=== PATIENT | female | born 1955 | race Caucasian/White ===

== ENCOUNTER → 2017-12-16 | Outpatient (CLI) | payer BC ==
[2017-12-16 10:16] LABS: HCT 42.6 % (34.0-46.0); MCH 29.9 pg (25.0-35.0); MCHC 32.9 g/dL (31.0-37.0); MCV 90.9 fL (80.0-100.0); Mean Platelet Volume 7.8; Platelet Count 255 k/uL (150-450); RBC 4.68 m/uL (3.80-5.40); RDW 12.2 % (11.5-15.5); WBC 6.8 k/uL (3.8-10.6)
[2017-12-16 10:43] LABS: ALT 47 U/L (9-52); AST 31 U/L (14-36); Albumin 4.1 g/dL (3.5-5.0); Alkaline Phosphatase 60 U/L (38-126); Anion Gap 7 mmol/L; Blood Urea Nitrogen 17 mg/dL (7-17); Calcium 9.6 mg/dL (8.4-10.2); Carbon Dioxide 27 mmol/L (22-30); Chloride 107 mmol/L (98-107); Cholesterol 212 mg/dL (<200); Glucose 91 mg/dL (74-99); HDL Cholesterol 52 mg/dL (40-60); LDL Cholesterol,Calculated 135 mg/dL (0-99); Potassium 4.7 mmol/L (3.5-5.1); Sodium 141 mmol/L (137-145); Total Bilirubin 0.6 mg/dL (0.2-1.3); Total Protein 7.5 g/dL (6.3-8.2); Triglycerides 127 mg/dL (<150)
[2017-12-16 19:34] LABS: Hemoglobin A1C 5.8 % (4.0-6.0)
== END ==
LOC: LABWHC1 08:48
PROVIDERS: ATTEND Family Medicine
DX: Z51.81 Encounter for therapeutic drug level monitoring (principal); Z79.899 Other long term (current) drug therapy
CPT/HCPCS: 36415; 80053; 80061; 83036; 84443; 85027

== ENCOUNTER → 2018-10-10 | Outpatient (CLI) | payer BC ==
[2018-10-10 11:18] LABS: Basophils # (A) 0.1 k/uL (0-0.2); Basophils % (A) 1 %; Eosinophils # (A) 0.3 k/uL (0-0.7); Eosinophils % (A) 4 %; HCT 41.5 % (34.0-46.0); HGB 14.1 gm/dL (11.4-16.0); Lymphocytes # (A) 3.9 k/uL (1.0-4.8); Lymphocytes % (A) 59 %; MCH 30.7 pg (25.0-35.0); MCHC 33.9 g/dL (31.0-37.0); MCV 90.5 fL (80.0-100.0); Mean Platelet Volume 7.1; Monocytes # (A) 0.3 k/uL (0-1.0); Monocytes % (A) 5 %; Neutrophils % (A) 29 %; Platelet Count 269 k/uL (150-450); RBC 4.59 m/uL (3.80-5.40); RDW 12.3 % (11.5-15.5); WBC 6.7 k/uL (3.8-10.6)
[2018-10-10 17:42] LABS: African American GFR (CKD) 91.6 (60.0-200.0); Albumin 4.2 g/dL (3.80-4.90); Albumin/Globulin Ratio 1.62 (1.60-3.17); Anion Gap 8.1 mmol/L (4.00-12.00); Calcium 9.5 mg/dL (8.7-10.3); Carbon Dioxide 24.9 mmol/L (21.6-31.8); Globulin 2.6 g/dL (1.6-3.3); LDL Cholesterol,Calculated 132.8 mg/dL (0.0-131.0); Potassium 4.6 mmol/L (3.5-5.5); Total Bilirubin 0.6 mg/dL (0.3-1.2); Total Protein 6.8 g/dL (6.2-8.2); VLDL Calculation 22.2 mg/dL (5.00-40.00)
== END | disposition home or self-care (01) ==
LOC: LABWHC1 10:45
PROVIDERS: ATTEND Family Medicine
DX: Z00.00 Encounter for general adult medical examination without abnormal findings (principal); I10 Essential (primary) hypertension
CPT/HCPCS: 36415; 80053; 80061; 83036; 84439; 84443; 85025

== ENCOUNTER → 2018-11-09 | Outpatient (CLI) | payer BC ==
--- NOTE | 2018-11-12 10:30 | MM ---
Reason for exam: screening (asymptomatic). Last mammogram was performed 5 years and 3 months ago. History: Patient is postmenopausal and is nulliparous. Family history of premenopausal breast cancer in aunt and premenopausal breast cancer in mother. Taking other hormone. Physical Findings: A clinical breast exam by your physician is recommended on an annual basis and results should be correlated with mammographic findings. MG Screening Mammo w CAD Bilateral CC and MLO view(s) were taken. Prior study comparison: August 20, 2013, bilateral MG screening mammo w CAD. July 31, 2012, bilateral digital screening mammo w/CAD. There are scattered fibroglandular densities. There is no discrete abnormality. No significant changes when compared with prior studies. ASSESSMENT: Negative, BI-RAD 1 RECOMMENDATION: Routine screening mammogram of both breasts in 1 year.
== END ==
LOC: RADMAMWWP 14:48
PROVIDERS: ATTEND Family Medicine
DX: Z12.31 Encounter for screening mammogram for malignant neoplasm of breast (principal); Z80.3 Family history of malignant neoplasm of breast
CPT/HCPCS: 77067

== ENCOUNTER → 2018-11-12 | Outpatient (CLI) | payer BC ==
--- NOTE | 2018-11-13 08:57 | ECHOF ---
Referral Reason:I49.8 Bradycardia MEASUREMENTS -------- HEIGHT: 160.0 cm WEIGHT: 73.9 kg BP: RVIDd: 2.5 cm (< 3.3) IVSd: 0.9 cm (0.6 - 1.1) LVIDd: 4.3 cm (3.9 - 5.3) LVPWd: 1.1 cm (0.6 - 1.1) IVSs: 1.5 cm LVIDs: 2.3 cm LVPWs: 1.4 cm LAESV Index (A-L): 15.54 ml/m Ao Diam: 2.6 cm (2.0 - 3.7) AV Cusp: 1.6 cm (1.5 - 2.6) LA Diam: 1.8 cm (2.7 - 3.8) MV EXCURSION: 12.148 mm (> 18.000) MV EF SLOPE: 54 mm/s (70 - 150) EPSS: 0.5 cm MV E Erick: 0.77 m/s MV DecT: 318 ms MV A Erick: 0.83 m/s MV E/A Ratio: 0.92 RAP: 15.00 mmHg RVSP: 37.04 mmHg FINDINGS -------- Sinus rhythm. This was a technically adequate study. The left ventricular size is normal. Left ventricular wall thickness is normal. Overall left vent ricular systolic function is normal with, an EF between 55 - 60 %. The diastolic filling pattern is normal for the age of the patient 12.69. The right ventricle is normal in size. The left atrial size is normal. Normal LA size by volume 22+/-6 ml/m2. The right atrial size is normal. Interatrial and interventricular septum intact. The aortic valve is trileaflet and appears structurally normal. The mitral valve is normal. There is trace mitral regurgitation. The tricuspid valve appears structurally normal. Mild tricuspid regurgitation present. There is b orderline pulmonary hypertension. The right ventricular systolic pressure, as measured by Doppler, is 37.04mmHg. There is no pulmonic regurgitation present. The aortic root size is normal. The inferior vena cava is mildly dilated. There is no pericardial effusion. CONCLUSIONS -------- 1. Sinus rhythm. 2. This was a technically adequate study. 3. The left ventricular size is normal. 4. Left ventricular wall thickness is normal. 5. Overall left ventricular systolic function is normal with, an EF between 55 - 60 %. 6. The right ventricle is normal in size. 7. The left atrial size is normal. 8. Normal LA size by volume 22+/-6 ml/m2. 9. The right atrial size is normal. 10. Interatrial and interventricular septum intact. 11. The aortic valve is trileaflet and appears structurally normal. 12. The mitral valve is normal. 13. There is trace mitral regurgitation. 14. The tricuspid valve appears structurally normal. 15. Mild tricuspid regurgitation present. 16. There is borderline pulmonary hypertension. 17. The right ventricular systolic pressure, as measured by Doppler, is 37.04mmHg. 18. There is no pulmonic regurgitation present. 19. The aortic root size is normal. 20. The inferior vena cava is mildly dilated. 21. There is no pericardial effusion. DIRECTOR OF VENDOR MANAGEMENT: Sera Monson RDCS
== END | disposition home or self-care (01) ==
LOC: RADECHMAIN 16:02
PROVIDERS: ATTEND Family Medicine
DX: I07.1 Rheumatic tricuspid insufficiency (principal)
CPT/HCPCS: 93306

== ENCOUNTER → 2019-01-12 | Outpatient (CLI) | payer BC | END | disposition home or self-care (01) | LOC: LABWHC1 09:43 | PROVIDERS: ATTEND Family Medicine | DX: I10 Essential (primary) hypertension (principal) | CPT/HCPCS: 36415; 84443 ==

== ENCOUNTER → 2019-09-04 | Outpatient (CLI) | payer BC | END | disposition home or self-care (01) | LOC: LABWHC1 08:06 | PROVIDERS: ATTEND Family Medicine | DX: E03.9 Hypothyroidism, unspecified (principal) | CPT/HCPCS: 36415; 84443 ==

== ENCOUNTER → 2019-10-24 | Outpatient (CLI) | payer BC ==
[~2019-10-24] MED LIST: REGADENOSON 0.4 MG/5 ML SYRINGE IV ONE
--- NOTE | 2019-10-24 13:29 | NM ---
EXAMINATION TYPE: NM stress lexiscan cardiolite DATE OF EXAM: 10/24/2019 COMPARISON: NONE HISTORY: Abnormal EKG TECHNIQUE: After the intravenous administration of 10.4 and 24.7 mCi Tc 99m Sestamibi-0.4 mg of Miguelina scan FINDINGS: Review of stress and rest SPECT images demonstrates no distinct perfusion abnormality. Gated analysi s shows normal wall motion with an estimated left ventricular ejection fraction of 68 %. IMPRESSION: No scintigraphic evidence for reversible ischemia.
--- NOTE | 2019-10-24 14:13 | EST ---
EXERCISE STRESS DATE OF SERVICE: 10/24/2019 AGE: 64 SEX: Fe HT: 63" WT: 151 lbs PROTOCOL: Lexiscan Cardiolite STAGE: DURATION OF EXERCISE: HEART RATE REST: 47 BLOOD PRESSURE REST: 103/66 MAXIMUM HEART RATE ACHIEVED: 75 MAXIMUM BLOOD PRESSURE: 103/66 85% MPHR: 100% MPHR: METS: REFERRING: Dr. Mendoza. INDICATION: Chest pain. STRESS DATA: Heart rate 47, pressure is 103/66 mmHg. Baseline EKG showed sinus mechanism. 0.4 mg of Lexiscan given over 15 seconds per protocol. Max heart rate was 75 beats per minute. Maximum pressure was 103/66 mmHg. Clinically, the patient did not have any symptoms and the EKG did not show any significant ST or T-wave abnormalities. CONCLUSION: 1. Nondiagnostic electrocardiogram stress testing in response to Lexiscan. 2. Please follow up on the Cardiolite portion on separate report. MMODL / IJN: [id number] /
== END | disposition home or self-care (01) ==
LOC: RADNMMAIN 08:12
PROVIDERS: ATTEND Family Medicine
DX: R94.31 Abnormal electrocardiogram [ECG] [EKG] (principal)
CPT/HCPCS: 93017; 78452; A9500; J2785

== ENCOUNTER → 2020-01-23 | Outpatient (CLI) | payer BC ==
[2020-01-23 16:36] LABS: HCT 38.6 % (34.0-46.0); MCH 30.5 pg (25.0-35.0); MCHC 33.7 g/dL (31.0-37.0); MCV 90.5 fL (80.0-100.0); Mean Platelet Volume 7.5; Platelet Count 245 k/uL (150-450); RBC 4.26 m/uL (3.80-5.40); RDW 12.1 % (11.5-15.5); WBC 9.8 k/uL (3.8-10.6)
[2020-01-24 01:19] LABS: African American GFR (CKD) 90.9 (60.0-200.0); Albumin/Globulin Ratio 1.6 (1.60-3.17); Anion Gap 7.3 mmol/L (4.00-12.00); BUN/Creat Ratio 32.5 Ratio (12.00-20.00); Calcium 9.6 mg/dL (8.7-10.3); Carbon Dioxide 27.7 mmol/L (21.6-31.8); Globulin 2.5 g/dL (1.6-3.3); Non-African American GFR(CKD) 78.5 (60.0-200.0); Potassium 4.1 mmol/L (3.5-5.5); Total Bilirubin 0.4 mg/dL (0.2-1.2); Total Protein 6.5 g/dL (6.2-8.2)
[2020-01-24 01:25] LABS: Hemoglobin A1C 5.9 % (4.0-6.0)
== END | disposition home or self-care (01) ==
LOC: LABWHC1 16:07
PROVIDERS: ATTEND Family Medicine
DX: B89 Unspecified parasitic disease (principal)
CPT/HCPCS: 36415; 80053; 83036; 85027; 86769

== ENCOUNTER → 2020-01-23 | Outpatient (CLI) | payer BC ==
--- NOTE | 2020-01-24 09:51 | MM ---
Reason for exam: screening (asymptomatic). Last mammogram was performed 1 year and 2 months ago. History: Patient is postmenopausal and is nulliparous. Family history of premenopausal breast cancer in aunt and premenopausal breast cancer in mother. Taking other hormone. Physical Findings: A clinical breast exam by your physician is recommended on an annual basis and results should be correlated with mammographic findings. MG 3D Screening Mammo W/Cad Bilateral CC and MLO view(s) were taken. Prior study comparison: November 09, 2018, bilateral MG screening mammo w CAD. August 20, 2013, bilateral MG screening mammo w CAD. The breast tissue is heterogeneously dense. This may lower the sensitivity of mammography. There is no discrete abnormality. No significant changes when compared with prior studies. ASSESSMENT: Negative, BI-RAD 1 RECOMMENDATION: Routine screening mammogram of both breasts in 1 year.
== END | disposition home or self-care (01) ==
LOC: RADMAMWWP 15:49
PROVIDERS: ATTEND Obstetrics & Gynecology Obstetrics
DX: Z12.31 Encounter for screening mammogram for malignant neoplasm of breast (principal); Z80.3 Family history of malignant neoplasm of breast
CPT/HCPCS: 77063; 77067

== ENCOUNTER 2020-11-23 15:24 | Emergency (ER) | payer BC ==
[2020-11-23 16:40] LABS: Basophils # (A) 0.1 k/uL (0-0.2); Basophils % (A) 1 %; Eosinophils # (A) 0.2 k/uL (0-0.7); Eosinophils % (A) 2 %; HCT 42.1 % (34.0-46.0); HGB 14.3 gm/dL (11.4-16.0); Lymphocytes # (A) 4.1 k/uL (1.0-4.8); Lymphocytes % (A) 47 %; MCH 30.9 pg (25.0-35.0); MCV 90.8 fL (80.0-100.0); Mean Platelet Volume 8.1; Monocytes # (A) 0.6 k/uL (0-1.0); Monocytes % (A) 7 %; Neutrophils # (A) 3.8 k/uL (1.3-7.7); Neutrophils % (A) 42 %; Platelet Count 231 k/uL (150-450); RBC 4.64 m/uL (3.80-5.40); RDW 11.6 % (11.5-15.5); WBC 8.9 k/uL (3.8-10.6)
[2020-11-23 16:48] VITALS: PULSE 76
[2020-11-23 16:53] LABS: ALT 33 U/L (4-34); AST 28 U/L (14-36); African American GFR (CKD) >90 (>60 ml/min/1.73 sqM); Albumin 3.9 g/dL (3.5-5.0); Alkaline Phosphatase 72 U/L (38-126); Anion Gap 9 mmol/L; Blood Urea Nitrogen 21 mg/dL (7-17); Calcium 9.6 mg/dL (8.4-10.2); Carbon Dioxide 23 mmol/L (22-30); Chloride 106 mmol/L (98-107); Glucose 115 mg/dL (74-99); Magnesium 2.1 mg/dL (1.6-2.3); Non-African American GFR(CKD) >90 (>60 ml/min/1.73 sqM); Potassium 3.8 mmol/L (3.5-5.1); Sodium 138 mmol/L (137-145); Total Bilirubin 0.5 mg/dL (0.2-1.3); Total Protein 7.2 g/dL (6.3-8.2)
[2020-11-23 16:56] LABS: INR 0.9 (<1.2); Partial Thromboplastin Time 22.6 sec (22.0-30.0); Prothrombin Time 9.8 sec (9.0-12.0)
--- NOTE | 2020-11-23 17:16 | XR ---
EXAMINATION TYPE: XR chest 2V DATE OF EXAM: 11/23/2020 COMPARISON: 08/20/2013 HISTORY: Chest pain TECHNIQUE: Frontal and lateral views of the chest are obtained. FINDINGS: There is no focal air space opacity, pleural effusion, or pneumothorax seen. The cardiac silhouette size is within normal limits. The osseous structures are intact. IMPRESSION: No acute cardiopulmonary process.
--- NOTE | 2020-11-23 18:00 | ED ---
Chest Pain HPI - General Chief Complaint: Chest Pain Stated Complaint: Chest Pain Time Seen by Provider: 11/23/20 16:23 Source: patient, family Mode of arrival: wheelchair - History of Present Illness Initial Comments: This is a 65-year-old female with no real significant past medical history who presents emergent department for chest pain. The patient states that she's been having intermittent episodes of chest pain for the last for 5 days. She states it's worse with exertion and better with rest. She states that she notices it when she walks or goes upstairs. She describes it as a pulling sensation that does not radiate however today she noted that she was having some discomfort in her arms. Currently she has no symptoms. She does not have any cardiac history. She denies any associative lightheaded this, dizziness, diaphoresis, shortness of breath, cough. No other complaints. - Related Data Home Medications Medication Instructions Recorded Confirmed Levothyroxine Sodium 150 mcg PO DAILY 11/23/20 11/23/20 Previous Rx's Medication Instructions Recorded Aspirin EC [Ecotrin] 325 mg PO DAILY #30 tablet. 08/22/13 Allergies Allergy/AdvReac Type Severity Reaction Status Date / Time Sulfa (Sulfonamide Allergy Intermediate Rash/Hives Verified 11/23/20 17:10 Antibiotics) Review of Systems ROS Statement: Those systems with pertinent positive or pertinent negative responses have been documented in the HPI. ROS Other: All systems not noted in ROS Statement are negative. EKG Findings - EKG Comments: EKG Findings:: EKG showing normal sinus rhythm with a rate of 65. No abnormal ST segment changes. There appears to be T-wave inversion in V2 and T-wave flattening in V3 however no other ischemic changes. QTC is 405. Other intervals normal. No ectopy. Past Medical History Past Medical History: Thyroid Disorder Additional Past Medical History / Comment(s): HYPOTHYROID History of Any Multi-Drug Resistant Organisms: None Reported Past Surgical History: Tonsillectomy Past Psychological History: No Psychological Hx Reported Smoking Status: Never smoker Past Alcohol Use History: Rare Past Drug Use History: None Reported - Past Family History Mother Family Medical History: Cancer Additional Family Medical History / Comment(s): BREAST CANCER Sister(s) Family Medical History: Blood Disorder Additional Family Medical History / Comment(s): AUTOIMMUNE DISORDER THAT ATTACKS WBC'S Course Vital Signs 11/23/20 11/23/20 15:37 16:45 Temperature 97.9 F Pulse Rate 66 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 She was evaluated at bedside. She has stable vital signs per she had no chest pain while in the emergency department. She had an EKG and troponin performed that were unremarkable. Chest x-ray was unremarkable. The respiratory blood work was also unremarkable. The patient has no risk factors for CAD. However story is somewhat concerning. EKG just showed some T-wave inversion in V2. I rechecked the Dr. Mendoza to see if he could get her in the office tomorrow for evaluation and possible setting up for further cardiac testing and he stated that he could. The patient was updated with this and stated that she felt comfortable going home tonight. The is going to be with her. He felt that he would be able to watch her at home. I told her that she is return promptly if she has any worsening of her symptoms or any changing symptoms at all. ARE answered. Disposition Clinical Impression: Chest tightness Disposition: HOME SELF-CARE Condition: Stable Instructions (If sedation given, give patient instructions): Chest Pain (ED) Is patient prescribed a controlled substance at d/c from ED?: No Referrals: Jaime Mendoza MD [Primary Care Provider] - 1-2 days
[2020-11-23] MEDS ORDERED: HYDROcodone/APAP 5-325MG 1 EACH TAB PO STA (19:07)
[2020-11-23 19:53] VITALS: BP 126/74; RESP 16; TEMP 98.3
== END 2020-11-23 19:53 | disposition home or self-care (01) ==
LOC: EC 15:24
DX: R07.89 Other chest pain (principal); E07.9 Disorder of thyroid, unspecified; Z79.82 Long term (current) use of aspirin; Z88.2 Allergy status to sulfonamides; Z90.89 Acquired absence of other organs
CPT/HCPCS: 36415; 71046; 80053; 83735; 83880; 84484; 85025; 85610; 85730; 99285

== ENCOUNTER → 2020-12-22 | Outpatient (CLI) | payer BC ==
--- NOTE | 2020-12-22 14:39 | NM ---
EXAMINATION TYPE: NM stress cardiolite complete DATE OF EXAM: 12/22/2020 COMPARISON: NONE HISTORY: 65-year-old female chest pain TECHNIQUE: After the intravenous administration of 9.3 mCi Tc 99m Sestamibi - Cardiolite resting SPE CT images acquired 45 minutes post injection. The patient received 0.4mg Lexiscan, 24.5 mCi Tc 99m Se stamibi - Stress images obtained 45 minutes post injection FINDINGS: Review of stress and rest SPECT images suggests a subtle small area of reversibility along the mid an terior wall. No distinct perfusion abnormality. Gated analysis shows normal wall motion with an travis mated left ventricular ejection fraction of 70 %. TID is calculated at 1.03, within normal limits. IMPRESSION: Equivocal for a small area of reversibility along the mid anterior wall. True inducible ischemia vers us attenuation artifact as the region is not corroborated on the polar maps. Further evaluation as cl inically indicated.
--- NOTE | 2020-12-22 18:50 | P.STRESS ---
- Stress Test Note Stress Test Results/Findings: Exam Performed: NM stress lexiscan cardiolite Exam Date: 12/22/20 Reason for Exam: CP Height: 5 ft 3 in Weight: 72 kg Protocol: LEXISCAN Stage: NA Duration of Exercise: NA Resting Heart Rate: 73 Resting Blood Pressure: 149/80 Maximum Achieved Heart Rate: 89 Maximum Achieved Blood Pressure: 149/80 85% PMHR: 133 100% PMHR: 156 METS: NA Technologist Comment: Stress Test Results/Findings: Baseline heart rate 73 beats a minute, Baseline blood pressure 149/80 mmHg Baseline crit EKG showed sinus rhythm with a [address] depression inferolaterally Patient received Lexiscan infusion per protocol No new ECG changes are noted no arrhythmias noted Nuclear portion will be reported separately
== END | disposition home or self-care (01) ==
LOC: RADNMMAIN 07:35
PROVIDERS: ATTEND Family Medicine
DX: R07.9 Chest pain, unspecified (principal)
CPT/HCPCS: 93017; 78452; A9500

== ENCOUNTER → 2020-12-29 | Outpatient (CLI) | payer BC ==
[2020-12-29 09:09] LABS: HCT 37.2 % (34.0-46.0); HGB 13.2 gm/dL (11.4-16.0); MCH 31.4 pg (25.0-35.0); MCHC 35.5 g/dL (31.0-37.0); MCV 88.7 fL (80.0-100.0); Mean Platelet Volume 7.7; Platelet Count 244 k/uL (150-450); RDW 12.3 % (11.5-15.5); WBC 6.3 k/uL (3.8-10.6)
[2020-12-29 09:26] LABS: African American GFR (CKD) >90 (>60 ml/min/1.73 sqM); Anion Gap 6 mmol/L; Blood Urea Nitrogen 22 mg/dL (7-17); Carbon Dioxide 26 mmol/L (22-30); Chloride 105 mmol/L (98-107); Non-African American GFR(CKD) >90 (>60 ml/min/1.73 sqM); Potassium 4.5 mmol/L (3.5-5.1); Sodium 137 mmol/L (137-145)
== END | disposition home or self-care (01) ==
LOC: LABPAT 08:19
PROVIDERS: ATTEND Internal Medicine Interventional Cardiology
DX: Z01.812 Encounter for preprocedural laboratory examination (principal); R07.9 Chest pain, unspecified
CPT/HCPCS: 80051; 82565; 84520; 85027

== ENCOUNTER 2021-01-05 09:20 | Day surgery (SDC) | payer BC ==
[2021-01-05] MEDS: SODIUM CHLORIDE 0.9% 1,000 ML in EMPTY BAG 1 BAG IV SCH (07:10)
[~2021-01-05 09:20] MED LIST changes: +ALPRAZolam 0.25 MG TAB PO PRN; +ALPRAZolam 0.5 MG TAB PO PRN; +ASPIRIN 325 MG TAB PO STA; +ATORVASTATIN 80 MG TAB PO STA; +HEPARIN SODIUM,PORCINE 10,000 UNIT in SODIUM CHLORIDE 0.9% 1,000 ML IRRIGATION PRN; +HEPARIN SODIUM,PORCINE 2,500 UNIT in SODIUM CHLORIDE 0.9% 250 ML IRRIGATION PRN; +NITROGLYCERIN SL TABS 0.4 MG TAB SUBLINGUAL PRN; -REGADENOSON 0.4 MG/5 ML SYRINGE IV ONE
[2021-01-05] MEDS ORDERED: SODIUM CHLORIDE 0.9% 1,000 ML IV ONE (09:35)
[2021-01-05] MEDS ORDERED: MIDAZOLAM 2 MG/2 ML VIAL IV ONE ×2 (11:02→11:17)
[2021-01-05] MEDS ORDERED: LIDOCAINE 1% INJ 10MG/ML (20 ML MDV) SQ ONE (11:03)
[2021-01-05] MEDS: VERAPAMIL SYRINGE (5 MG/10 ML) INTRAARTER ONE ×2 (11:05→11:40)
[2021-01-05] MEDS: HEPARIN SODIUM 1,000 UN/ML (10ML VL) IV ONE ×2 (11:08→11:16)
[2021-01-05] MEDS ORDERED: PRASUGREL 10 MG TAB PO ONE (11:17)
[2021-01-05] MEDS ORDERED: fentaNYL (PF) 50 MCG/ML 2 ML AMP IV ONE (11:20)
[2021-01-05] MEDS: NITROGLYCERIN 1000MCG/10ML SYRINGE INTRACORON ONE ×2 (11:27→11:31)
[2021-01-05] MEDS ORDERED: IOPAMIDOL-370 125ML BTL INJ ONE (11:43)
[2021-01-05] MEDS ORDERED: MAG HYDROX/AL HYDROX/SIMETH 30 ML CUP PO PRN (11:49)
[2021-01-05] MEDS ORDERED: NITROGLYCERIN SL TABS 0.4 MG TAB SUBLINGUAL PRN (11:49)
[2021-01-05] MEDS ORDERED: ATROPINE SULFATE 0.1 MG/ML 10ML SYRINGE IV PRN (11:49)
[2021-01-05] MEDS ORDERED: RX INFO: IV CONTRAST WAS GIVEN 1 EACH MISC MISCELLANE PRN (11:49)
[2021-01-05] MEDS ORDERED: ZOLPIDEM 5 MG TAB PO PRN (11:49)
[2021-01-05] MEDS ORDERED: SODIUM CHLORIDE 0.9% 1,000 ML IV SCH (12:00)
[2021-01-05] MEDS ORDERED: METOPROLOL SUCCINATE (ER) 25 MG TAB.ER.24H PO STA (13:01)
[2021-01-05 14:06] VITALS: BMI 29.6
--- NOTE | 2021-01-05 15:06 | CC ---
CARDIAC CATHETERIZATION REPORT DATE OF SERVICE: January 05, 2021. PERFORMING PHYSICIAN: Smith Arellano MD. PROCEDURE PERFORMED: 1. Selective right and left coronary angiogram. 2. Left heart catheterization. 3. Successful stenting of the mid left anterior descending artery using 3.25 x 15 mm Xience drug-eluting stent which was dilated using 3.5 mm NC balloon with an excellent angiographic result and reduction of stenosis from 80% to 0%. INDICATION: This is a 65-year-old female patient with dyslipidemia who was experiencing symptoms of chest discomfort and she underwent myocardial perfusion imaging stress test and that revealed an anterior ischemia. Because of that, a heart catheterization was advised. APPROACH: Right radial artery. COMPLICATION: None. LEVEL OF SEDATION: Moderate with sedation length of 25 minutes. PROCEDURE DESCRIPTION: After obtaining informed consent, the patient was brought to the cardiac cath lab manager. The right radial artery was cannulated using micropuncture technique. The micropuncture wire passed easily then I placed a 6-Haitian sheath at the right radial artery. At that point, the patient was given a total of 2 mg of verapamil IA and total of 5000 units of heparin IV. Selective right and left coronary angiogram performed using JR4 and JL3.5 catheters. Left heart catheterization was performed using 5-Haitian pigtail catheter. After that, I did intervene on the LAD please see a separate paragraph for that. SELECTIVE CORONARY ANGIOGRAM: 1. The right coronary artery is a medium caliber vessel. It is a nondominant vessel and appeared to be angiographically normal. 2. The left main is angiographically normal. It bifurcates into left circumflex and left anterior descending artery. 3. The left circumflex is a large caliber vessel. It is a dominant vessel. It appeared angiographically normal. Distally it bifurcates into PDA and PLV branches. Both appeared to be angiographically normal. 4. The left anterior descending artery: The proximal LAD appeared angiographically normal. The mid LAD after the bifurcation of a medium-sized diagonal branch has a lesion appeared to be in the range of 80% to 90%. The angiographically normal. HEMODYNAMICS: The LVEDP was 18 mmHg without significant gradient across the aortic valve. PCI OF THE LAD: Anticoagulation was achieved using heparin and continued using heparin with continuous ACT monitoring throughout the procedure. After that, I did engage the left main using JL3.5 guiding catheter. I did wire the LAD using a run-through wire. After that, I did PTCA ballooning using 2.5 x 12 mm balloon before I deployed the 2.5 x 15 mm Xience drug-eluting stent where the stent was positioned under fluoroscopy guidance and deployed under 16 atmospheres for 20 seconds. I post-dilated the stent using 3.5 mm NC balloon. The following angiogram showed excellent angiographic results and the procedure was completed without any complication. CONCLUSION: 1. Intermittent episodes of chest discomfort in this 65-year-old female patient with dyslipidemia who underwent myocardial perfusion imaging stress test and that revealed an anterior ischemia. 2. 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 I performed successful stenting of the LAD. 3. Dominant left circumflex coronary system. 4. Mildly dilated LVEDP. 5. POSTPROCEDURE MANAGEMENT: 1. Dual anti-platelet therapy. 2. Aggressive cholesterol control. 3. Risk factor modifications. 4. Follow up with the patient. RODRICK / NUNUN: [id number] /
[2021-01-06] MEDS: SODIUM CHLORIDE 0.9% 1,000 ML in EMPTY BAG 1 BAG IV SCH ×2 (02:38→08:31)
--- NOTE | 2021-01-06 06:19 | CONS ---
CONSULTATION Charlotte Harvey is a 65-year-old white female, status post cardiac catheterization with LAD lesion, 90% down to 0% with PTCA. No chest pain or shortness of breath postop. Cardiovascular S1-S2. Lungs clear. ASSESSMENT: 1. Hypothyroidism. 2. Left anterior descending coronary artery status post PTCA. PLAN: Patient will continue with levothyroxine, aspirin, Lipitor, Toprol-XL, possible Plavix. Follow up in next 24 to 48 hours for discharge. Thank you for the consult Dr. Arellano. RODRICK / BEHZAD: [id number] /
[2021-01-06 06:29] LABS: Basophils # (A) 0.1 k/uL (0-0.2); Basophils % (A) 1 %; Eosinophils # (A) 0.2 k/uL (0-0.7); Eosinophils % (A) 2 %; HGB 13.8 gm/dL (11.4-16.0); Lymphocytes # (A) 4.7 k/uL (1.0-4.8); Lymphocytes % (A) 49 %; MCH 30.9 pg (25.0-35.0); MCHC 34.6 g/dL (31.0-37.0); MCV 89.2 fL (80.0-100.0); Monocytes # (A) 0.6 k/uL (0-1.0); Monocytes % (A) 6 %; Neutrophils # (A) 3.9 k/uL (1.3-7.7); Neutrophils % (A) 41 %; Platelet Count 252 k/uL (150-450); RBC 4.49 m/uL (3.80-5.40); RDW 12.3 % (11.5-15.5); WBC 9.7 k/uL (3.8-10.6)
[2021-01-06] MEDS ORDERED: LEVOTHYROXINE 75 MCG TAB PO SCH (06:30)
[2021-01-06 06:39] LABS: African American GFR (CKD) >90 (>60 ml/min/1.73 sqM); Anion Gap 7 mmol/L; Blood Urea Nitrogen 17 mg/dL (7-17); Calcium 9.5 mg/dL (8.4-10.2); Carbon Dioxide 27 mmol/L (22-30); Chloride 105 mmol/L (98-107); Glucose 103 mg/dL (74-99); Non-African American GFR(CKD) 81 (>60 ml/min/1.73 sqM); Potassium 4.4 mmol/L (3.5-5.1); Sodium 139 mmol/L (137-145)
[2021-01-06 08:17] VITALS: BP 102/60; PULSE 57; RESP 16; TEMP 97.6
[2021-01-06] MEDS ORDERED: ATORVASTATIN 40 MG TAB PO SCH (09:00)
[2021-01-06] MEDS ORDERED: PRASUGREL 10 MG TAB PO SCH (09:00)
[2021-01-06] MEDS ORDERED: METOPROLOL SUCCINATE (ER) 25 MG TAB.ER.24H PO SCH (09:00)
[2021-01-06] MEDS ORDERED: ASPIRIN 325 MG TAB PO SCH (09:00)
--- NOTE | 2021-01-06 09:40 | P.DS ---
Providers Date of admission: January 052020 Attending physician: Smith Arellano Consults: 01/05/21 11:49 Consult Physician Routine Consulting Provider: [facility] Consult Reason/Comments: Post Interventional patient Do you want consulting provider notified?: Already Contacted 01/05/21 11:52 Consult Physician Routine Consulting Provider: Jaime Mendoza Consult Reason/Comments: Medical tx Do you want consulting provider notified?: Yes Primary care physician: [place] Hospital Course: This is a 65-year-old female patient with hypertension and dyslipidemia was experiencing symptoms of chest discomfort and underwent myocardial perfusion stress test and that came in to be normal. She underwent a heart catheterization yesterday that revealed severe disease involving the proximal to mid LAD which she underwent successful stenting of the proximal to mid LAD with a good angiographic results and without any complication She was seen this morning. She is feeling better in terms of shortness of breath and chest pain. The right radial site is soft and nontender and without any bruises. The patient is going to be discharged home on dual antiplatelet therapy and I'll follow-up with her in the office in a week Plan - Discharge Summary Discharge Rx Participant: No New Discharge Prescriptions: New Prasugrel [Effient] 10 mg PO DAILY #90 tablet Continue Aspirin EC [Ecotrin] 325 mg PO DAILY #30 tablet. Levothyroxine Sodium 150 mcg PO DAILY Metoprolol Succinate (ER) [Toprol XL] 12.5 mg PO DAILY Atorvastatin [Lipitor] 40 mg PO DAILY Discharge Medication List Aspirin EC [Ecotrin] 325 mg PO DAILY #30 tablet. 08/22/13 [Rx] Levothyroxine Sodium 150 mcg PO DAILY 11/23/20 [History] Atorvastatin [Lipitor] 40 mg PO DAILY 01/05/21 [History] Metoprolol Succinate (ER) [Toprol XL] 12.5 mg PO DAILY 01/05/21 [History] Prasugrel [Effient] 10 mg PO DAILY #90 tablet 01/06/21 [Rx] Follow up Appointment(s)/Referral(s): Smith Arellano MD [STAFF PHYSICIAN] - 1 Week (APPOINTMENT MADE ON January @ 12:15PM )
== END 2021-01-06 11:50 | disposition home or self-care (01) ==
LOC: CATHCVL 09:20 → 6NMEDSUR 11:45 → CATHCVL 01-06 11:50
PROVIDERS: ATTEND Internal Medicine Interventional Cardiology
DX: I25.110 Atherosclerotic heart disease of native coronary artery with unstable angina pectoris (principal); I10 Essential (primary) hypertension; E78.00 Pure hypercholesterolemia, unspecified; E03.9 Hypothyroidism, unspecified; E78.5 Hyperlipidemia, unspecified; Z88.2 Allergy status to sulfonamides; Z79.82 Long term (current) use of aspirin; Z79.890 Hormone replacement therapy; Z79.899 Other long term (current) drug therapy
CPT/HCPCS: 93458; 80048; 85025; 87635; C9600; C1887; C1894; C1725 ×2; C1769; C1874; J2250; J2001; J3010; J1644; Q9967

== ENCOUNTER → 2021-01-15 | Outpatient (CLI) | payer BC ==
--- NOTE | 2021-01-15 15:34 | BD ---
EXAMINATION TYPE: Axial Bone Density DATE OF EXAM: 01/15/2021 COMPARISON: NONE CLINICAL HISTORY: disorder of bone Height: 62 IN Weight: 169 LBS FRAX RISK QUESTIONS: Family History (Parent hip fracture): YES FATHER RISK FACTORS HISTORY OF: Active: YES Postmenopausal woman: AGE 51 Take estrogen and/or progesterone medications: NOT NOW How long: CONTROL FOR 10 YEARS MEDICATIONS: Thyroid Medications: YES Which medication: Levothyroxine How Lon + YEARS Additional Medications: LEVOTHYROXINE,81 MG ASPIRIN, HEART MED, CHOLESTEROL MED, BLOOD THINNER, EXAM MEASUREMENTS: Bone mineral densitometry was performed using the [employer] System. Bone mineral density as measured about the Lumbar spine is: ----- L1-L4(G/cm2): 1.118 T Score Values are as follows: ----- L2: -0.9 ----- L3: -0.3 ----- L4: 0.0 ----- L1-L4: -0.5 Bone mineral density BASELINE Bone mineral density about the R hip (g/cm2): 0.883 Bone mineral density about the L hip (g/cm2): 0.853 T Score values are as follows: -----R Neck: -1.1 -----L Neck: -1.3 -----R Total: -0.3 -----L Total: -0.7 Bone mineral density BASELINE IMPRESSION: osteopenia. NOTE: T-SCORE=SD OF THE YOUNG ADULT MEAN.
== END | disposition home or self-care (01) ==
LOC: RADBDWWP 07:14
PROVIDERS: ATTEND Family Medicine
DX: M85.89 Other specified disorders of bone density and structure, multiple sites (principal); Z79.01 Long term (current) use of anticoagulants; Z79.82 Long term (current) use of aspirin
CPT/HCPCS: 77080

== ENCOUNTER → 2021-01-25 | Outpatient (CLI) | payer BC ==
--- NOTE | 2021-01-26 14:05 | MM ---
Reason for exam: screening (asymptomatic). Last mammogram was performed 1 year ago. History: Patient is postmenopausal and is nulliparous. Family history of premenopausal breast cancer in maternal aunt at age 45 and premenopausal breast cancer in mother at age 45. Taking other hormone. Physical Findings: A clinical breast exam by your physician is recommended on an annual basis and results should be correlated with mammographic findings. MG 3D Screening Mammo W/Cad Bilateral CC and MLO view(s) were taken. Prior study comparison: January 23, 2020, bilateral MG 3d screening mammo w/cad. November 09, 2018, bilateral MG screening mammo w CAD. There are scattered fibroglandular densities. There is no discrete abnormality. ASSESSMENT: Negative, BI-RAD 1 RECOMMENDATION: Routine screening mammogram of both breasts in 1 year.
== END | disposition home or self-care (01) ==
LOC: RADMAMWWP 07:41
PROVIDERS: ATTEND Obstetrics & Gynecology Obstetrics
DX: Z12.31 Encounter for screening mammogram for malignant neoplasm of breast (principal); Z78.0 Asymptomatic menopausal state; Z80.3 Family history of malignant neoplasm of breast; R92.8 Other abnormal and inconclusive findings on diagnostic imaging of breast
CPT/HCPCS: 77063; 77067

== ENCOUNTER → 2021-06-04 | Outpatient (CLI) | payer BC ==
[2021-06-04 14:45] LABS: HCT 38.5 % (37.2-46.3); HGB 12.8 g/dL (12.0-15.0); MCH 29.9 pg (27.0-32.0); MCHC 33.2 g/dL (32.0-37.0); Mean Platelet Volume 10.9 fL (9.5-12.2); NRBC Per 100 WBC 0 /100 WBCS (0.0-0.0); Platelet Count 230 X 10*3/uL (140-440); RBC 4.28 X 10*6/uL (4.10-5.20); RDW 11.6 % (11.5-14.5); WBC 7.36 X 10*3/uL (4.50-10.00)
[2021-06-04 16:29] LABS: ALT 35 U/L (8-44); AST 22 U/L (13-35); African American GFR (CKD) 106.1 (60.0-200.0); Albumin 4.1 g/dL (3.8-4.9); Albumin/Globulin Ratio 1.58 (1.60-3.17); Alkaline Phosphatase 86 U/L (41-126); BUN/Creat Ratio 25.86 Ratio (12.00-20.00); Blood Urea Nitrogen 18.1 mg/dL (9.0-27.0); Calcium 9.6 mg/dL (8.7-10.3); Carbon Dioxide 23.7 mmol/L (20.0-27.5); Chloride 107 mmol/L (96-109); Chol/HDL Ratio 2.63 Ratio; Globulin 2.6 g/dL (1.6-3.3); Glucose 92 mg/dL (70-110); LDL Cholesterol,Calculated 57.1 mg/dL (0.0-131.0); Non-African American GFR(CKD) 91.6 (60.0-200.0); Potassium 4.3 mmol/L (3.5-5.5); Sodium 140 mmol/L (135-145); Total Protein 6.7 g/dL (6.2-8.2)
== END | disposition home or self-care (01) ==
LOC: LABWHC1 09:14
PROVIDERS: ATTEND Family Medicine
DX: I25.10 Atherosclerotic heart disease of native coronary artery without angina pectoris (principal)
CPT/HCPCS: 36415; 80053; 80061; 83036; 84439; 84443; 85027

== ENCOUNTER → 2021-12-06 | Outpatient (CLI) | payer BC ==
[2021-12-06 10:29] LABS: ALT 44 U/L (8-44); AST 31 U/L (13-35); African American GFR (CKD) 105.4 (60.0-200.0); Albumin 4.1 g/dL (3.8-4.9); Albumin/Globulin Ratio 1.32 (1.60-3.17); Alkaline Phosphatase 103 U/L (41-126); BUN/Creat Ratio 22.57 Ratio (12.00-20.00); Blood Urea Nitrogen 15.8 mg/dL (9.0-27.0); Calcium 9.7 mg/dL (8.7-10.3); Carbon Dioxide 25.3 mmol/L (20.0-27.5); Chloride 102 mmol/L (96-109); Chol/HDL Ratio 2.63 Ratio; Globulin 3.1 g/dL (1.6-3.3); Glucose 106 mg/dL (70-110); LDL Cholesterol,Calculated 58.6 mg/dL (0.0-131.0); Non-African American GFR(CKD) 90.9 (60.0-200.0); Potassium 4.4 mmol/L (3.5-5.5); Sodium 136 mmol/L (135-145); Total Protein 7.2 g/dL (6.2-8.2)
== END | disposition home or self-care (01) ==
LOC: LABWHC1 08:19
PROVIDERS: ATTEND Family Medicine
DX: Z00.00 Encounter for general adult medical examination without abnormal findings (principal); I10 Essential (primary) hypertension
CPT/HCPCS: 36415; 80053; 80061; 83036; 84443

== ENCOUNTER → 2022-10-21 | Outpatient (CLI) | payer BC ==
[2022-10-21 11:08] LABS: Basophils # (A) 0.07 X 10*3/uL (0.00-0.10); Basophils % (A) 1.1 %; Eosinophils # (A) 0.15 X 10*3/uL (0.04-0.35); Eosinophils % (A) 2.4 %; HCT 40.7 % (37.2-46.3); HGB 13.5 d/dL (12.0-15.0); Lymphocytes # (A) 3.07 X 10*3/uL (0.90-5.00); Lymphocytes % (A) 49.7 %; MCH 29.8 pg (27.0-32.0); MCHC 33.2 d/dL (32.0-37.0); MCV 89.8 FL (80.0-97.0); Mean Platelet Volume 11.4 FL (9.5-12.2); Monocytes # (A) 0.61 X 10*3/uL (0.20-1.00); Monocytes % (A) 9.9 %; NRBC Per 100 WBC 0 X 10*3/uL (0.00-0.01); Neutrophils # (A) 2.27 X 10*3/uL (1.80-7.70); Neutrophils % (A) 36.7 %; Platelet Count 230 X 10*3/uL (140-440); RBC 4.53 X 10*6/uL (4.10-5.20); RDW 11.8 % (11.5-14.5); WBC 6.18 X 10*3/uL (4.50-10.00)
[2022-10-21 13:26] LABS: BUN/Creat Ratio 20.88 Ratio (12.00-20.00); Blood Urea Nitrogen 16.7 mg/dL (9.0-27.0); Chloride 107 mmol/L (96-109); Chol/HDL Ratio 2.66 Ratio; Glucose 97 mg/dL (70-110); LDL Cholesterol,Calculated 64.1 mg/dL (0.0-131.0); Potassium 4.3 mmol/L (3.5-5.5); Sodium 142 mmol/L (135-145)
[2022-10-21 13:27] LABS: ALT 34 U/L (8-44); AST 26 U/L (13-35); Albumin 4.2 d/dL (3.8-4.9); Albumin/Globulin Ratio 1.62 Ratio (1.60-3.17); Alkaline Phosphatase 89 U/L (41-126); Calcium 9.8 mg/dL (8.7-10.3); Globulin 2.6 d/dL (1.6-3.3); Total Bilirubin 0.7 mg/dL (0.3-1.2); Total Protein 6.8 d/dL (6.2-8.2)
== END | disposition home or self-care (01) ==
LOC: LABWHC1 07:09
PROVIDERS: ATTEND Family Medicine
DX: Z00.00 Encounter for general adult medical examination without abnormal findings (principal); Z51.81 Encounter for therapeutic drug level monitoring; I10 Essential (primary) hypertension; I25.10 Atherosclerotic heart disease of native coronary artery without angina pectoris; G47.33 Obstructive sleep apnea (adult) (pediatric); Z79.899 Other long term (current) drug therapy
CPT/HCPCS: 36415; 80053; 80061; 82164; 82785; 84443; 85025

== ENCOUNTER → 2023-04-15 | Outpatient (CLI) | payer BC ==
[2023-04-15 13:43] LABS: HCT 40.4 % (37.2-46.3); HGB 13.3 g/dL (12.0-15.0); MCH 29.7 pg (27.0-32.0); MCHC 32.9 g/dL (32.0-37.0); MCV 90.2 FL (80.0-97.0); Mean Platelet Volume 11.5 FL (9.5-12.2); NRBC Per 100 WBC 0 X 10*3/uL (0.00-0.01); Platelet Count 230 X 10*3/uL (140-440); RBC 4.48 X 10*6/uL (4.10-5.20); RDW 11.8 % (11.5-14.5); WBC 5.85 X 10*3/uL (4.50-10.00)
[2023-04-15 13:56] LABS: ALT 34 U/L (8-44); AST 25 U/L (13-35); Alkaline Phosphatase 88 U/L (41-126); BUN/Creat Ratio 19.75 Ratio (12.00-20.00); Blood Urea Nitrogen 15.8 mg/dL (9.0-27.0); Calcium 9.7 mg/dL (8.7-10.3); Carbon Dioxide 24.9 mmol/L (21.6-31.8); Chloride 106 mmol/L (96-109); Chol/HDL Ratio 2.34 Ratio; Globulin 2.5 g/dL (1.6-3.3); Glucose 102 mg/dL (70-110); LDL Cholesterol,Calculated 56.9 mg/dL (0.0-131.0); Potassium 4.4 mmol/L (3.5-5.5); Sodium 141 mmol/L (135-145); Total Bilirubin 0.6 mg/dL (0.3-1.2); Total Protein 6.5 g/dL (6.2-8.2); VLDL Calculation 13.46 mg/dL (5.00-40.00)
[2023-04-15 14:47] LABS: Microalbumin Creatinine Ratio <11 mg/g Cr (0-30)
== END | disposition home or self-care (01) ==
LOC: LABWHC1 07:58
PROVIDERS: ATTEND Family Medicine
DX: Z00.00 Encounter for general adult medical examination without abnormal findings (principal); I10 Essential (primary) hypertension; I25.10 Atherosclerotic heart disease of native coronary artery without angina pectoris; G47.33 Obstructive sleep apnea (adult) (pediatric); Z79.899 Other long term (current) drug therapy
CPT/HCPCS: 36415; 80053; 80061; 82043; 82570; 83036; 84443; 85027

== ENCOUNTER → 2024-06-10 | Outpatient (CLI) | payer MEDICARE, BC ==
--- NOTE | 2024-06-10 07:51 | MM ---
Reason for Exam: Screening (asymptomatic). Last mammogram was performed 3 year(s) and 5 month(s) ago. Patient History: Menarche at age 13. Patient has no children. Postmenopausal. Maternal aunt had breast cancer, age 45. Mother had breast cancer, age 45. Risk Values: Araseli 5 year model risk: 3.3%. NCI Lifetime model risk: 11.1%. Prior Study Comparison: 08/20/2013 Bilateral Screening Mammogram, LOCATED WITHIN [facility]. 11/09/2018 Bilateral Screening Mammogram, LOCATED [facility]IN [facility]. 01/23/2020 Bilateral Screening Mammogram, LOCATED [facility]IN [facility]. 01/25/2021 Bilateral Screening Mammogram, LOCATED WITHIN [facility]. Tissue Density: The breasts are heterogeneously dense, which may obscure small masses. Findings: Analyzed By CAD. There is no suspicious group of microcalcifications or new suspicious mass in either breast. Overall Assessment: Negative, BI-RAD 1 Management: Screening Mammogram of both breasts in 1 year. See note below in regards to the patient's increased 5 year Araseli score. Patient should continue monthly self-breast exams. A clinical breast exam by your physician is recommended on an annual basis. This exam should not preclude additional follow-up of suspicious palpable abnormalities. Note on Araseli scores and lifetime risk: 1. A Araseli score greater than 3% is considered moderate risk. If this is the case, consider specialist referral to assess eligibility for a risk reducing agent. 2. If overall lifetime risk for the development of breast cancer is 20% or higher, the patient may qualify for future screening with alternating mammogram and breast MRI. [facility], , 06/10/2024 7:47 AM. Electronically signed and approved by: Marion Smith M.D. Radiologist
--- NOTE | 2024-06-10 11:58 | BD ---
EXAMINATION TYPE: Axial Bone Density DATE OF EXAM: 06/10/2024 CLINICAL HISTORY: 68 years old Female. ICD-10 CODE: Z78.0 Postmenopausal , Additional History: Height: 62 in Weight: 169 lbs FRAX RISK QUESTIONS: Secondary Osteoporosis: 3. Menopause before 45: yes age 45 MEDICATIONS: Thyroid Medications: yes Which medication: Levothyroxine How Lon+ years EXAM MEASUREMENTS: Bone mineral densitometry was performed using the [employer] System. Bone mineral density as measured about the Lumbar spine is: ----- L1-L4(G/cm2): 1.072 T Score Values are as follows: ----- L1: -1.7 ----- L2: -1.8 ----- L3: -0.1 ----- L4: -0.4 ----- L1-L4: -0.9 Z Score Values are as follows: ----- L1: -0.4 ----- L2: -0.6 ----- L3: 1.1 ----- L4: 0.8 ----- L1-L4: 0.3 Bone mineral density has: Decreased -4.1% since study of: 01/15/2021 Bone mineral density about the R hip (g/cm2): 0.935 Bone mineral density about the L hip (g/cm2): 0.898 T Score values are as follows: -----R Neck: -1.2 -----L Neck: -1.3 -----R Total: -0.6 -----L Total: -0.9 Z Score values are as follows: -----R Neck: 0.1 -----L Neck: 0.0 -----R Total: 0.5 -----L Total: 0.2 Bone mineral density has: Decreased -2.8% since study of: 01/15/2021 FRAX%s: The graph provided illustrates a 8.7% chance for a major osteoporotic fx and a 0.9% chance fo r the hips probability for fx in 10 years time. IMPRESSION: Osteopenia (T Score between -2.5 and -1). There is slightly increased risk of fracture and the patient may be considered for treatment. Re-Screen 2-5 years. NOTE: T-SCORE=SD OF THE YOUNG ADULT MEAN. [facility], , 06/10/2024 11:55 AM
== END | disposition home or self-care (01) ==
LOC: RADMAMWWP 06:58
PROVIDERS: ATTEND Family Medicine
DX: Z12.31 Encounter for screening mammogram for malignant neoplasm of breast (principal); R92.333 Mammographic heterogeneous density, bilateral breasts; M85.89 Other specified disorders of bone density and structure, multiple sites; Z80.3 Family history of malignant neoplasm of breast; Z78.0 Asymptomatic menopausal state
CPT/HCPCS: 77063; 77067; 77080

== ENCOUNTER 2024-07-19 05:55 | Day surgery (SDC) | payer BC, MEDICARE ==
[2024-07-19] MEDS ORDERED: SODIUM CHLORIDE 0.9% 500 ML 500 ML IV SCH (06:15)
[2024-07-19 07:14] VITALS: RESP 16; TEMP 97.7
[2024-07-19] MEDS: SODIUM CHLORIDE 0.9% 500 ML 500 ML IV ONE (07:16)
[2024-07-19] MEDS: MIDAZOLAM 2 MG/2 ML VIAL IVP ONE ×2 (09:05→09:07)
[2024-07-19] MEDS: BENZOCAINE SPRAY 1 EACH TOPICAL ONE (09:05)
[2024-07-19] MEDS: fentaNYL (PF) 50 MCG/ML 2 ML AMP IVP ONE ×2 (09:05→09:07)
--- NOTE | 2024-07-19 09:19 | P.PCN ---
Date of Procedure: 07/19/24 Operative Findings: TRANSESOPHAGEAL ECHOCARDIOGRAM SYSTEM SOFTWARE DEVELOPER: NICHELLE BARRIOS MD, RPVI INDICATION: Subaortic membrane SEDATION: Conscious sedation COMPLICATION: None LEVEL OF SEDATION Moderate with sedation length of 12 minutes PROCEDURE DESCRIPTION: After obtaining an informed consent, the patient was brought to transesophageal echocardiogram room. Pulse oximetry and heart monitors were attached to the patient. The patient throat was sprayed using lidocaine. The patient was turned into left lateral position. After that a bite guard was placed. After an appropriate conscious sedation was initiated, the transesophageal echocardiogram was advanced through a bite guard into the mid esophagus. A 2-D echocardiogram images, color Doppler images, continuous wave images, pulse-wave images, of various cardiac structure were performed. After that the transesophageal echocardiogram probe was advanced into the stomach and fixed to obtain transgastric view was. The probe was brought into the mid esophagus. Inter-atrial septum was interrogated using 2D images, color Doppler images, and then contrast study. After that transesophageal echocardiogram was withdrawn out and upon withdrawing the descending thoracic aorta all the way up to the arch was evaluated. CONCLUSION: 1. Normal biventricular dimension and systolic function 2. Overall normal intracardiac valves with mild aortic insufficiency 3. Subaortic membrane 4. Intact interatrial septum and intact left atrial abdomen 5. No pericardial effusion
[2024-07-19 15:56] VITALS: BP 116/64; PULSE 64
== END 2024-07-19 10:39 | disposition home or self-care (01) ==
LOC: CATHCVL 05:55
PROVIDERS: ATTEND Internal Medicine Interventional Cardiology
DX: Q24.4 Congenital subaortic stenosis (principal); I35.1 Nonrheumatic aortic (valve) insufficiency
CPT/HCPCS: 93312; 93320; 93325; J2250; J3010

== ENCOUNTER → 2024-08-22 | Outpatient (CLI) | payer MEDICARE, BC ==
[2024-08-22 10:24] LABS: Microalbumin Creatinine Ratio <14 mg/g Cr (0-30); Urine Creatinine 83.5 mg/dL (28.0-217.0)
[2024-08-22 10:26] LABS: ALT 30 U/L (8-44); AST 25 U/L (13-35); Albumin/Globulin Ratio 1.54 Ratio (1.60-3.17); Alkaline Phosphatase 89 U/L (41-126); Blood Urea Nitrogen 12.4 mg/dL (9.0-27.0); Calcium 9.5 mg/dL (8.7-10.3); Chloride 107 mmol/L (96-109); Globulin 2.6 g/dL (1.6-3.3); Glucose 98 mg/dL (70-110); LDL Cholesterol,Calculated 54.4 mg/dL (0.0-131.0); Potassium 4.4 mmol/L (3.5-5.5); Sodium 141 mmol/L (135-145); Total Bilirubin 0.7 mg/dL (0.3-1.2); Total Protein 6.6 g/dL (6.2-8.2); VLDL Calculation 17.98 mg/dL (5.00-40.00)
== END | disposition home or self-care (01) ==
LOC: LABWHC1 07:32
PROVIDERS: ATTEND Family Medicine
DX: Z00.00 Encounter for general adult medical examination without abnormal findings (principal); Z79.899 Other long term (current) drug therapy; I10 Essential (primary) hypertension
CPT/HCPCS: 36415; 80053; 80061; 82043; 82570; 83036